=== PATIENT | male | born 1985 | race Caucasian/White ===

== ENCOUNTER 2019-08-06 21:50 | Emergency (ER) | payer MEDICAID, OTHER ==
[~2019-08-06] VITALS: Ht 182.9 cm; Wt 79.0 kg
[~2019-08-06 21:50] MED LIST: IBUP-1984 PO; NAPR-435 PO
[2019-08-06 21:56] VITALS: BP 143/77
[2019-08-06] MEDS ORDERED: ibuprofen tablet 400 MG TABLET PO ONE (22:40)
--- NOTE | 2019-08-06 22:40 | NUR ---
PT TAKEN BACK TO [facility]
--- NOTE | 2019-08-06 22:50 | NUR ---
PT BACK FROM [facility] MEDICATED WITH 800 MG IBPROFIN FOR PAIN TO THE LEFT SHOULDER
[2019-08-06] MEDS ORDERED: IBUP-1984 PO (22:54)
== END 2019-08-06 23:09 | disposition home or self-care (01) ==
LOC: ER 21:52
DX: M25.512 Pain in left shoulder (principal); F12.90 Cannabis use, unspecified, uncomplicated; Z88.0 Allergy status to penicillin; Z79.899 Other long term (current) drug therapy
CPT/HCPCS: 73030; 99283

== ENCOUNTER 2019-09-10 15:06 | Emergency (ER) | payer MEDICAID ==
[~2019-09-10] VITALS: Ht 182.9 cm; Wt 77.0 kg
[2019-09-10 15:17] VITALS: BP 109/76
[2019-09-10] MEDS ORDERED: CLIN-90 PO (15:40)
[2019-09-10] MEDS ORDERED: IBUP-1985 PO (15:51)
== END 2019-09-10 15:57 | disposition home or self-care (01) ==
LOC: ER 15:07
DX: L03.314 Cellulitis of groin (principal); L03.116 Cellulitis of left lower limb; F12.90 Cannabis use, unspecified, uncomplicated; Z88.0 Allergy status to penicillin; Z79.899 Other long term (current) drug therapy
CPT/HCPCS: 99283